=== PATIENT | male | born 1980 | race Caucasian/White ===

== ENCOUNTER 2016-08-29 09:52 | Emergency (ER) | payer BC ==
[2016-08-29 09:56] VITALS: BP 155/102; BMI 31.4
--- NOTE | 2016-08-29 10:50 | DR.GENAD ---
HPI - PCP Primary Care Physician: DR. SANTILLAN - HPI Comment HPI Comment: REDNESS AND CENTER PUSTULE MID RIGHT THIGH. IN THE FRONT AREA. SIZE GRAPE FRUIT. PATIENT BELIEVE IT TO BE INSECT BITE. FELT PAIN IN AREA TODAY. NO FEVER. NO DRAINAGE. - Complaint/Symptoms Chief Complaint Doctors Comments: RIGHT THIGH PAIN, INSECT BITE. Chief Complaint:: PATIENT STATED THAT SOMETHING BITE HIS RIGHT LEG AND IT IS SWOLLEN. PATIENT THINKS SOMETHING BITE HIS THIS MORNIG. HE FELT A PINCH THEN COULD HARDLY MOVE HIS LEG. UPPER RIGHT THIGH - Nurses notes reviewed Nurses Notes Review: Yes - Source History Provided: Patient - Mode of Arrival Mode of Arrival: Ambulatory - Timing Onset of Chief Complaint: 08/29/16 Came on: Suddenly - Duration Duration: Constant Duration: Days - Severity Severity: Moderate PMH - PMH Past Medical History: Yes Past Medical History: Dyslipidemia, Hypertension Past Surgical History: No - Family History History of Family Medical Conditions: Yes Family Medical History: Diabetes Mellitus, Cancer - Social History Does patient currently use any type of tobacco product: No Have you used tobacco products in the last 12 months: No Type of Tobacco Use: None Does any household member use tobacco: No Alcohol Use: None Do you use any recreational Drugs:: No Lives With: Family Lives Where: Home - infectious screening In the last 2 months have you had wt loss of >10#?: NO Have you had fever, night sweats or hemotysis?: No Have you traveled outside the country in the last 6 months?: No Isolation: Standard ROS - Review of Systems Constitutional: No Symptoms Reported Eyes: No Symptoms Reported ENTM: No Symptoms Reported Respiratoy: No Symptoms Reported Cardiovascular: No Symptoms Reported Gastrointestinal/Abdominal: No Symptoms Reported Genitourinary: No Symptoms Reported Neurological: No Symptoms Reported Musculoskeletal: Right, Other (THIGH.) Integumentary: Lesions (RIGHT MID THIGH, FRONT ASPECT. SIZE GRAPEFRUIT.), Itching Hematologic/Lymphatic: No Symptoms Reported Endocrine: No Symptoms Reported All Other Systems: Reviewed and Negative PE - Vital Signs Vitals: Temperature 97.4 F Pulse Rate 111 Respiratory Rate 20 Blood Pressure [Right Arm] 114/75 Blood Pressure [Left Arm] 139/93 Blood Pressure 155/102 O2 Sat by Pulse Oximetry 100 - General Limitations: No Limitations General Appearance: Alert - Head Head Exam: Normal Inspection - Eyes Eye exam: Normal Appearance - ENT ENT Exam: Normal External Ear Exam Mouth Exam: Normal Inspection Throat Exam: Normal Inspection - Neck Neck Exam: Trachea Midline - Chest Chest Inspection: Symmetric Chest Wall Rise - Respiratory Respiratory Exam: Bilateral Clear to Auscultation - Cardiovascular Cardiovascular Exam: Regular Rate, Normal Rhythm, Normal Heart Sounds - Abdominal Exam Abdominal Exam: Normal Inspection - Extremities Extremities Exam: Tenderness (RT THIGH) - Back Back Exam: Normal Inspection - Neurologic Neurological Exam: Alert - Psychiatric Psychiatric Exam: Normal Affect, Normal Mood - Skin Skin Exam: Erythema (REDNESS, TENDERNESS AND CENTER PUSTULE RT THIGH, FRONT.) MDM - Differential Diagnosis Differential Diagnosis: CELLULITIS, INSECT BITE Course - Education/Counseling Education/Counseling: Patient, Education Educated On: Diagnosis, Needs for Follow Up - Diagnosis Discharge Problem: Insect bite Qualifiers: Encounter type: initial encounter Qualified Code(s): W57.XXXA - Bitten or stung by nonvenomous insect and other nonvenomous arthropods, initial encounter Cellulitis Qualifiers: Site of cellulitis: extremity Site of cellulitis of extremity: lower extremity Laterality: right Qualified Code(s): L03.115 - Cellulitis of right lower limb - Discharge Plan Disposition: HOME, SELF-CARE Condition: Stable Prescriptions: Acetaminophen/Codeine Tab [TYLENOL w/CODEINE #3 (300 MG/30 MG) *] 1 tab PO Q4- 6H PRN #12 tab PRN Reason: Pain Hydroxyzine Pamoate [Vistaril] 25 - 50 mg PO TID PRN #15 cap PRN Reason: Sulfamethoxazole-Trimethoprim [BACTRIM DS TAB 800/160 MG *] 1 tab PO BID #20 tab - Follow ups/Referrals Follow ups/Referrals: ROSALINDA SANTILLAN [Primary Care Provider] - 3 days - Instructions Instructions: Cellulitis, Insect Bite, [id number] Additional Instructions: return to ed if worse
== END 2016-08-29 11:36 | disposition home or self-care (01) ==
LOC: ER 10:06
DX: L03.115 Cellulitis of right lower limb (principal); W57.XXXA Bitten or stung by nonvenomous insect and other nonvenomous arthropods, initial encounter
CPT/HCPCS: 99281; 99282

== ENCOUNTER 2016-12-10 19:32 | Emergency (ER) | payer BC ==
[2016-12-10 19:39] VITALS: BP 160/82; BMI 31.4
--- NOTE | 2016-12-10 20:35 | DR.GENAD ---
HPI - PCP Primary Care Physician: NFD - HPI Comment HPI Comment: PATIENT IS WORSE TONIGHT. COUGHING HURTING CHEST. COUGH IS PRODUCTIVE, YELLOW SPUTUM. POSITIVE DYSPHAGIA. - Complaint/Symptoms Chief Complaint Doctors Comments: SORE THROAT, FEVER, CHEST PAIN, SOB AND WHEEZING TIMES 2 DAYS. Chief Complaint:: PT C/O FEVER THROAT PAIN AND WHEEZING - Nurses notes reviewed Nurses Notes Review: Yes - Source History Provided: Patient - Mode of Arrival Mode of Arrival: Ambulatory - Timing Onset of Chief Complaint: 12/08/16 Came on: Suddenly - Duration Duration: Constant Duration: Days - Severity Severity: Moderate PMH - PMH Past Medical History: Yes Past Medical History: Dyslipidemia, Hypertension Past Surgical History: No - Family History History of Family Medical Conditions: Yes Family Medical History: Diabetes Mellitus, Cancer - Social History Do you use any recreational Drugs:: No Lives With: Family Lives Where: Home - infectious screening In the last 2 months have you had wt loss of >10#?: NO Have you had fever, night sweats or hemotysis?: No Have you traveled outside the country in the last 6 months?: No Isolation: Standard ROS - Review of Systems Constitutional: Fever, Weakness, Fatigue. negative: Chills, Diaphoresis Eyes: No Symptoms Reported. negative: Eye Pain, Discharge ENTM: Nose Discharge, Nose Congestion, Throat Pain. negative: Ear Pain Respiratoy: Productive Cough, Short of Breath. negative: Wheezing, Hemoptysis Cardiovascular: Chest Pain Gastrointestinal/Abdominal: No Symptoms Reported. negative: Diarrhea, Nausea, Vomiting Genitourinary: No Symptoms Reported. negative: Dysuria, Frequency, Hematuria Neurological: Headache, Weakness Musculoskeletal: Muscle Pain Integumentary: No Symptoms Reported Hematologic/Lymphatic: No Symptoms Reported Endocrine: No Symptoms Reported All Other Systems: Reviewed and Negative PE - Vital Signs Vitals: Temperature 98.6 F Pulse Rate 100 Respiratory Rate 18 Blood Pressure [Right Arm] 114/75 Blood Pressure [Left Arm] 139/93 Blood Pressure 160/82 O2 Sat by Pulse Oximetry 100 - General Limitations: No Limitations General Appearance: Alert - Head Head Exam: Normal Inspection - Eyes Eye exam: Normal Appearance - Neck Neck Exam: Normal Inspection - Chest Chest Inspection: Symmetric Chest Wall Rise - Respiratory Respiratory Exam: Normal Lung Sounds Bilat Respiratory Exam: Bilateral Clear to Auscultation - Cardiovascular Cardiovascular Exam: Regular Rate, Normal Rhythm, Normal Heart Sounds - Abdominal Exam Abdominal Exam: Normal Bowel Sounds, Soft. negative: Tenderness - Extremities Extremities Exam: Normal Inspection - Back Back Exam: Normal Inspection - Neurologic Neurological Exam: Alert, Oriented X3 - Psychiatric Psychiatric Exam: Normal Affect, Normal Mood - Skin Skin Exam: Normal Color [facility] - Differential Diagnosis Differential Diagnosis: STREP THROAT, BRONCHITIS, PNEUMONIA, DYSPHAGIA Course - Treatment Treatment: SEE ORDERS. - Education/Counseling Education/Counseling: Patient, Education Educated On: Treatment, Diagnosis, Needs for Follow Up ROR - Labs Reviewed Laboratory Results Reviewed?: Yes Laboratory: Streptococcus Screen Negative (NEGATIVE) 12/10/16 20:12 - XRAY XRAY Interpreted by: Radiologist XRAY Findings: REPORT DISCUSS WITH PATIENT. - Diagnosis Discharge Problem: Bronchitis, Sore throat - Discharge Plan Disposition: 01 HOME, SELF-CARE Condition: Stable Prescriptions: Acetaminophen with Codeine [Tylenol/Codeine #3 300-30 mg] 1 tab PO Q4-6H PRN # 15 tab PRN Reason: Pain Amoxicillin [Amoxil 875 mg] 875 mg PO Q12H #20 tab - Follow ups/Referrals Follow ups/Referrals: NFD,None [Primary Care Provider] - 3 days - Instructions Instructions: Sore Throat, [id number], Acute Bronchitis, [id number] Additional Instructions: RETURN TO ED IF WORSE,
[2016-12-10] MEDS ORDERED: ROCEPHIN VIAL 1 GM IM ONE (21:09)
[2016-12-10] MEDS ORDERED: TORADOL 60 MG VIAL IM ONE (21:09)
[2016-12-10] MEDS ORDERED: ROCEPHIN VIAL 1 GM ONE (21:40)
[2016-12-10] MEDS ORDERED: TORADOL 60 MG VIAL ONE (21:41)
--- NOTE | 2016-12-10 22:03 | RAD ---
Chest, one view Indication: Fever, wheeze subparagraph comparison: 05/28/2015 Findings: The heart size is normal. The lungs are clear without focal infiltrate or pleural effusion . The bony thorax is unremarkable. Impression: No acute cardiopulmonary disease. Reported By:
== END 2016-12-10 22:00 | disposition home or self-care (01) ==
LOC: ER 19:41
DX: J40 Bronchitis, not specified as acute or chronic (principal); J02.9 Acute pharyngitis, unspecified
CPT/HCPCS: 71010; 87070; 87880; 90472; 96372; 99283; J0696; J1885

== ENCOUNTER 2017-05-13 22:39 | Emergency (ER) | payer SELFPAY ==
[2017-05-13 22:43] VITALS: BMI 32.8
[2017-05-13] MEDS ORDERED: NITROSTAT SL PRN (22:58)
[2017-05-13] MEDS ORDERED: ASPIRIN 81 MG CHEWTAB PO ONE (22:58)
--- NOTE | 2017-05-13 22:59 | DR.GENAD ---
HPI - PCP Primary Care Physician: rosalinda santillan - HPI Comment HPI Comment: PAIN NON RADIATING ASSOCIATED WITH SOB AND WEAKNESS. NO FEVER. - Complaint/Symptoms Chief Complaint Doctors Comments: INTERMITTENT PRECORDIAL CHEST PRESSURE TIMES 10HRS. Chief Complaint:: pt stated he started having chest pain today about 10 hours pain comes and goes - Nurses notes reviewed Nurses Notes Review: Yes - Source History Provided: Patient - Mode of Arrival Mode of Arrival: Ambulatory - Timing Onset of Chief Complaint: 05/13/17 Came on: Suddenly - Duration Duration: Constant Duration: Hours - Severity Severity: Moderate PMH - PMH Past Medical History: Yes Past Medical History: Dyslipidemia, Hypertension Past Surgical History: No - Family History History of Family Medical Conditions: Yes Family Medical History: Diabetes Mellitus, Cancer - Social History Does patient currently use any type of tobacco product: No Have you used tobacco products in the last 12 months: No Type of Tobacco Use: None Does any household member use tobacco: No Alcohol Use: None Do you use any recreational Drugs:: No Lives With: Alone Lives Where: Home - infectious screening In the last 2 months have you had wt loss of >10#?: NO Have you had fever, night sweats or hemotysis?: No Have you traveled outside the country in the last 6 months?: No Isolation: Standard ROS - Review of Systems Constitutional: Weakness, Fatigue. negative: Chills, Fever Eyes: No Symptoms Reported. negative: Eye Pain, Discharge ENTM: No Symptoms Reported. negative: Ear Pain, Nose Discharge, Nose Congestion , Throat Pain Respiratoy: Short of Breath. negative: Productive Cough, Non-Productive Cough, Wheezing, Hemoptysis Cardiovascular: Chest Pain, Palpitations Gastrointestinal/Abdominal: No Symptoms Reported Genitourinary: No Symptoms Reported Neurological: Weakness. negative: Headache, Dizziness Musculoskeletal: No Symptoms Reported Integumentary: No Symptoms Reported Hematologic/Lymphatic: No Symptoms Reported Endocrine: No Symptoms Reported All Other Systems: Reviewed and Negative PE - Vital Signs Vitals: Temperature 98.7 F Pulse Rate [Left Brachial] 129 Pulse Rate 136 Respiratory Rate 16 Blood Pressure [Right Arm] 114/75 Blood Pressure [Left Arm] 134/70 Blood Pressure 174/108 O2 Sat by Pulse Oximetry 100 - General Limitations: No Limitations General Appearance: Alert - Head Head Exam: Normal Inspection - Eyes Eye exam: Normal Appearance - ENT ENT Exam: Normal External Ear Exam External Ear Exam: Normal External Inspection TM/Canal Exam: Bilateral Normal Nose Exam: Normal Nose Exam Mouth Exam: Normal Inspection Throat Exam: Normal Inspection - Neck Neck Exam: Trachea Midline - Chest Chest Inspection: Symmetric Chest Wall Rise - Respiratory Respiratory Exam: Normal Lung Sounds Bilat Respiratory Exam: Bilateral Rhonchi, Upper Rhonchi, Lower Rhonchi - Cardiovascular Cardiovascular Exam: Regular Rate, Normal Rhythm, Normal Heart Sounds - Abdominal Exam Abdominal Exam: Normal Bowel Sounds, Soft. negative: Tenderness - Extremities Extremities Exam: Normal Inspection - Back Back Exam: Normal Inspection - Neurologic Neurological Exam: Alert, Oriented X3 - Psychiatric Psychiatric Exam: Normal Affect, Normal Mood - Skin Skin Exam: Normal Color MDM - Differential Diagnosis Differential Diagnosis: CHEST PAIN, TACHYCARDIA Course - Treatment Treatment: SEE ORDERS. SIGN AMA. DO NOT WISH TO STAY IN PATIENT FOR CHEST PAIN. NTG RELIEF PAIN. STILL TACHYCARDIAC. - Consultation Consultation Comments: WILL ADMIT PT BUT PATIENT DO NOT WISH TO BE HOSPITALIZE. - Education/Counseling Education/Counseling: Patient, Education Educated On: Diagnosis, Needs for Follow Up ROR - Labs Reviewed Result Diagrams: 05/13/17 22:50 05/13/17 22:50 Laboratory: WBC 14.6 X10^3/uL (3.6-10.0) H 05/13/17 22:50 RBC 5.30 X10^6/uL (4.7-6.0) 05/13/17 22:50 Hgb 16.6 g/dL (13.5-18.0) 05/13/17 22:50 Hct 48.1 % (42.0-54.0) 05/13/17 22:50 MCV 90.9 fL (80.0-100.0) 05/13/17 22:50 MCH 31.4 pg (27.0-34.0) 05/13/17 22:50 MCHC 34.6 g/dL (33.0-35.0) 05/13/17 22:50 RDW 13.9 % (11.6-16.5) 05/13/17 22:50 Plt Count 315 X10^3/uL (150.0-450.0) 05/13/17 22:50 MPV 7.7 fL (7.4-11.0) 05/13/17 22:50 Neut % 72.0 % (42.0-75.0) 05/13/17 22:50 Lymph % 22.1 % (21.0-51.0) 05/13/17 22:50 [place] % 3.6 % (0.0-13.0) 05/13/17 22:50 Eos % 1.4 % (0.9-2.9) 05/13/17 22:50 Baso % 0.9 % (0.2-1.0) 05/13/17 22:50 Neut # 10.5 x10^3/uL (2.2-4.8) H 05/13/17 22:50 Lymph # 3.2 X10^3/uL (1.3-2.9) H 05/13/17 22:50 [place] # 0.5 x10^3/uL (0.3-0.8) 05/13/17 22:50 Eos # 0.2 x10^3/uL (0.0-0.2) 05/13/17 22:50 Baso # 0.1 X10^3/uL (0.0-0.1) 05/13/17 22:50 Absolute Nucleated RBC 0.1 /100WBC 05/13/17 22:50 D-Dimer < 100 ng/mL (0-400) 05/13/17 22:50 Sodium 137 mmol/L (136-145) 05/13/17 22:50 Corrected Sodium 139 mmol/L (136-145) 05/13/17 22:50 Potassium 3.9 mmol/L (3.5-5.1) 05/13/17 22:50 Chloride 105 mmol/L (98-107) 05/13/17 22:50 Carbon Dioxide 21.1 mmol/L (21-32) 05/13/17 22:50 BUN 17 mg/dL (7-18) 05/13/17 22:50 Creatinine 1.64 mg/dL (0.70-1.30) H 05/13/17 22:50 Est GFR (MDRD) Af Amer > 60 (>60) 05/13/17 22:50 Est GFR (MDRD) Non-Af 50 (>60) L 05/13/17 22:50 Glucose 170 mg/dL (65-99) H 05/13/17 22:50 Calcium 9.1 mg/dL (8.5-10.1) 05/13/17 22:50 Corrected Calcium TNP 05/13/17 22:50 Total Bilirubin 0.20 mg/dL (0.2-1.0) 05/13/17 22:50 AST 22 Units/L (15-37) 05/13/17 22:50 ALT 47 Units/L (12-78) 05/13/17 22:50 Alkaline Phosphatase 116 Units/L (46-116) 05/13/17 22:50 Creatine Kinase 125 Units/L (39-308) 05/13/17 22:50 CK-MB (CK-2) < 1.0 ng/mL (0-4.0) 05/13/17 22:50 CK/CKMB % Calc 0.8 % (<4) 05/13/17 22:50 Troponin I < 0.02 ng/mL (0-1.5) 05/13/17 22:50 B-Natriuretic Peptide 6.2 pg/mL (0-79) 05/13/17 22:50 Total Protein 7.6 g/dL (6.4-8.2) 05/13/17 22:50 Albumin 3.6 g/dL (3.4-5.0) 05/13/17 22:50 Globulin 4.0 g/dL (2.5-4.5) 05/13/17 22:50 Albumin/Globulin Ratio 0.9 Ratio (1.1-2.1) L 05/13/17 22:50 H. pylori IgG Antibody Negative (NEGATIVE) 05/13/17 22:50 - XRAY XRAY Interpreted by: Radiologist XRAY Findings: REPORT DISCUSS WITH PATIENT. - EKG Rhythm: ST (EKG NOTED) - Diagnosis Discharge Problem: Tachycardia Chest pain Qualifiers: Chest pain type: precordial pain Qualified Code(s): R07.2 - Precordial pain - Discharge Plan Disposition: 07 AGAINST MEDICAL ADVICE Condition: Stable - Follow ups/Referrals Follow ups/Referrals: ROSALINDA SANTILLAN [REFERRING] - 3 days - Instructions
[2017-05-13] MEDS ORDERED: ASPIRIN 81 MG CHEWTAB PO SCH (23:00)
[2017-05-13 23:12] LABS: BASOPHILS # (AUTO) 0.1 X10^3/uL (0.0-0.1); BASOPHILS % (AUTO) 0.9 % (0.2-1.0); EOSINOPHILS # (AUTO) 0.2 x10^3/uL (0.0-0.2); EOSINOPHILS % (AUTO) 1.4 % (0.9-2.9); HEMATOCRIT 48.1 % (42.0-54.0); HEMOGLOBIN 16.6 g/dL (13.5-18.0); LYMPHOCYTES # (AUTO) 3.2 X10^3/uL (1.3-2.9); LYMPHOCYTES % (AUTO) 22.1 % (21.0-51.0); MEAN CORPUSCULAR HEMOGLOBIN 31.4 pg (27.0-34.0); MEAN CORPUSCULAR HGB CONC 34.6 g/dL (33.0-35.0); MEAN CORPUSCULAR VOLUME 90.9 fL (80.0-100.0); MEAN PLATELET VOLUME 7.7 fL (7.4-11.0); MONOCYTES # (AUTO) 0.5 x10^3/uL (0.3-0.8); MONOCYTES % (AUTO) 3.6 % (0.0-13.0); NEUTROPHILS # (AUTO) 10.5 x10^3/uL (2.2-4.8); PLATELET COUNT 315 X10^3/uL (150.0-450.0); RED CELL DISTRIBUTION WIDTH 13.9 % (11.6-16.5); WHITE BLOOD COUNT 14.6 X10^3/uL (3.6-10.0)
[2017-05-13] MEDS ORDERED: ASPIRIN ONE (23:15)
[2017-05-13] MEDS ORDERED: NITROSTAT SL ONE (23:15)
[2017-05-13 23:26] LABS: BLOOD UREA NITROGEN 17 mg/dL (7-18); CALCIUM 9.1 mg/dL (8.5-10.1); CARBON DIOXIDE 21.1 mmol/L (21-32); CHLORIDE 105 mmol/L (98-107); CREATININE 1.64 mg/dL (0.70-1.30); TROPONIN I < 0.02 ng/mL (0-1.5); eGFR BLACK RACES > 60 (>60); eGFR NON BLACK RACES 50 (>60)
--- NOTE | 2017-05-13 23:27 | RAD ---
Indication: Pain Exam: Portable chest Comparison: 12/10/2016 Findings: The heart is normal. The pulmonary vessels are slightly ill-defined centrally. The lungs ar e hypoinflated. No consolidation or effusion is seen. The bones are intact. Impression: Mild central pulmonary congestion or pulmonary artery hypertension with no acute infiltra te or effusion. Reported By:
[2017-05-13 23:28] LABS: B-TYPE NATRIURETIC PEPTIDE 6.2 pg/mL (0-79)
[2017-05-13 23:31] LABS: ALANINE AMINOTRANSFERASE 47 Units/L (12-78); ALBUMIN 3.6 g/dL (3.4-5.0); ALKALINE PHOSPHATASE 116 Units/L (46-116); CKMB % 0.8 % (<4); CREATINE KINASE 125 Units/L (39-308); CREATINE KINASE MB < 1.0 ng/mL (0-4.0); TOTAL PROTEIN 7.6 g/dL (6.4-8.2)
[2017-05-13 23:36] VITALS: BP 134/70
[2017-05-13 23:50] LABS: COR NA(FOR HYPERGLY) 139 mmol/L (136-145); SODIUM 137 mmol/L (136-145)
[2017-05-13 23:52] LABS: ASPARTATE AMINO TRANSFERASE 22 Units/L (15-37)
[2017-05-14] MEDS ORDERED: LOPRESSOR TAB 25 MG PO SCH (09:00)
[2017-05-14] MEDS ORDERED: ASPIRIN PO SCH (09:00)
== END 2017-05-14 00:46 | disposition left against medical advice (07) ==
LOC: ER 22:39 → UNDOADMOB 05-14 00:32 → ICU 05-14 00:32 → ER 05-14 00:46
DX: R00.0 Tachycardia, unspecified (principal); R07.2 Precordial pain
CPT/HCPCS: 36415; 71045; 80053; 82550; 82553; 83880; 84484; 85025; 85378; 85610; 86677; 93005; 93010; 96365; 96367; 99283; A4216; A4222

== ENCOUNTER 2017-07-10 10:32 | Emergency (ER) | payer BC ==
[2017-07-10 10:54] VITALS: BMI 32.5
[2017-07-10 11:12] VITALS: BP 148/96
--- NOTE | 2017-07-10 11:19 | DR.ABDMALE ---
HPI - Time seen Time seen: 11:20 - PCP Primary Care Physician: ROSALINDA TORRES - Complaint Chief Complaint Doctors Comments: HISTORY BELOW. Chief Complaint:: PT C/O HAVING EPIGASTRIC PAIN THAT STARTED FOR A FEW MONTHS PT C/O PAIN GETTING WORSE ON SATURDAY PT WENT TO HIS MD ON 07/09/17 AND HE DID SOME LABS AND PT C/O INCREASED PAIN SO MD HIM TOLD HIM TO COME TO THE ER. Self Treatment fo Chief Complaint: PT C/O EATING MAKES HIS PAIN WORSE. - Reviewed Nurses Notes Review: Yes - Mode of arrival Mode of Arrival: Ambulatory - Timing Onset of Chief Complaint: 06/03/17 Came on: Suddenly - Duration Duration: Constant Duration: Weeks - Location Location: Epigastric - Quality Quality: Cramping - Context Onset: Suddenly - Modifying factors Worsening Factors: Food Improving Factors: Nothing - Associated signs and symptoms Associated Signs and Symptoms: Nausea PMH - PMH Past Medical History: No Past Medical History: Dyslipidemia, Hypertension Past Surgical History: No - Family History History of Family Medical Conditions: Yes Family Medical History: Diabetes Mellitus, Cancer - Social History Does patient currently use any type of tobacco product: No Have you used tobacco products in the last 12 months: No Type of Tobacco Use: None Does any household member use tobacco: No Alcohol Use: None Do you use any recreational Drugs:: No Lives With: Family Lives Where: Home - infectious screening In the last 2 months have you had wt loss of >10#?: NO Have you had fever, night sweats or hemotysis?: No Have you traveled outside the country in the last 6 months?: No Isolation: Standard ROS - Review of Systems Constitutional: No Symptoms Reported Eyes: No Symptoms Reported ENTM: No Symptoms Reported Respiratoy: No Symptoms Reported Cardiovascular: No Symptoms Reported Gastrointestinal/Abdominal: Abdominal Pain, Nausea Genitourinary: No Symptoms Reported Neurological: No Symptoms Reported Musculoskeletal: No Symptoms Reported Integumentary: No Symptoms Reported Hematologic/Lymphatic: No Symptoms Reported Endocrine: No Symptoms Reported All Other Systems: Reviewed and Negative PE - Vital Signs Vital Signs: Temp Pulse Resp BP BP BP Pulse Ox 07/10/17 11:11 148/96 07/10/17 10:48 97.2 F L 120 H 20 182/104 98 05/13/17 23:35 134/70 134/70 04/17/16 07:43 114/75 - General Limitations: No Limitations General Appearance: Alert - Head Head Exam: Normal Inspection - Eyes Eye exam: Normal Appearance - ENT ENT Exam: Normal External Ear Exam - Neck Neck Exam: Trachea Midline - Chest Chest Inspection: Symmetric Chest Wall Rise - Respiratory Respiratory Exam: Normal Lung Sounds Bilat Respiratory Exam: Bilateral Clear to Auscultation - Cardiovascular Cardiovascular Exam: Regular Rate, Normal Rhythm, Irregular Rhythm - Abdominal Exam Abdominal Exam: Normal Bowel Sounds, Soft, Tenderness Abdominal Tenderness: Diffuse, Moderate - Rectal Rectal Exam: Deferred - Back Back Exam: Normal Inspection - Extremeties Extremities Exam: Normal Inspection - Exam: Male: Deferred - Neurologic Neurological Exam: Alert, Oriented X3 - Psychiatric Psychiatric Exam: Normal Affect, Normal Mood - Skin Skin Exam: Normal Color MDM - Differential Diagnosis Differential Diagnosis: Bowel Obstruction, Cholcystitis, Cholelethiasis, Diverticular disease, Gastritus/PUD, Gastroenteritis, Pancreatitis, Urinary tract infection, Urolithiasis Course - Treatment Treatment: SEE ORDERS. - Education/Counseling Education/Counseling: Patient, Education Educated On: Treatment, Diagnosis, Needs for Follow Up ROR - Labs Reviewed Laboratory Results Reviewed?: Yes Result Diagrams: 07/10/17 11:51 07/10/17 11:51 Laboratory: WBC 10.8 X10^3/uL (3.6-10.0) H 07/10/17 11:51 RBC 5.66 X10^6/uL (4.7-6.0) 07/10/17 11:51 Hgb 17.9 g/dL (13.5-18.0) 07/10/17 11:51 Hct 50.6 % (42.0-54.0) 07/10/17 11:51 MCV 89.4 fL (80.0-100.0) 07/10/17 11:51 MCH 31.7 pg (27.0-34.0) 07/10/17 11:51 MCHC 35.4 g/dL (33.0-35.0) H 07/10/17 11:51 RDW 13.8 % (11.6-16.5) 07/10/17 11:51 Plt Count 371 X10^3/uL (150.0-450.0) 07/10/17 11:51 MPV 7.6 fL (7.4-11.0) 07/10/17 11:51 Neut % 56.6 % (42.0-75.0) 07/10/17 11:51 Lymph % 35.1 % (21.0-51.0) 07/10/17 11:51 [place] % 6.4 % (0.0-13.0) 07/10/17 11:51 Eos % 1.1 % (0.9-2.9) 07/10/17 11:51 Baso % 0.8 % (0.2-1.0) 07/10/17 11:51 Neut # 6.1 x10^3/uL (2.2-4.8) H 07/10/17 11:51 Lymph # 3.8 X10^3/uL (1.3-2.9) H 07/10/17 11:51 [place] # 0.7 x10^3/uL (0.3-0.8) 07/10/17 11:51 Eos # 0.1 x10^3/uL (0.0-0.2) 07/10/17 11:51 Baso # 0.1 X10^3/uL (0.0-0.1) 07/10/17 11:51 Absolute Nucleated RBC 0.1 /100WBC 07/10/17 11:51 Sodium 137 mmol/L (136-145) 07/10/17 11:51 Corrected Sodium TNP 07/10/17 11:51 Potassium 4.3 mmol/L (3.5-5.1) 07/10/17 11:51 Chloride 103 mmol/L (98-107) 07/10/17 11:51 Carbon Dioxide 22.1 mmol/L (21-32) 07/10/17 11:51 BUN 16 mg/dL (7-18) 07/10/17 11:51 Creatinine 1.24 mg/dL (0.70-1.30) 07/10/17 11:51 Est GFR (MDRD) Af Amer > 60 (>60) 07/10/17 11:51 Est GFR (MDRD) Non-Af > 60 (>60) 07/10/17 11:51 Glucose 91 mg/dL (65-99) 07/10/17 11:51 Calcium 9.5 mg/dL (8.5-10.1) 07/10/17 11:51 Corrected Calcium TNP 07/10/17 11:51 Total Bilirubin 0.40 mg/dL (0.2-1.0) 07/10/17 11:51 AST 26 Units/L (15-37) 07/10/17 11:51 ALT 45 Units/L (12-78) 07/10/17 11:51 Alkaline Phosphatase 118 Units/L (46-116) H 07/10/17 11:51 Total Protein 8.4 g/dL (6.4-8.2) H 07/10/17 11:51 Albumin 4.0 g/dL (3.4-5.0) 07/10/17 11:51 Globulin 4.4 g/dL (2.5-4.5) 07/10/17 11:51 Albumin/Globulin Ratio 0.9 Ratio (1.1-2.1) L 07/10/17 11:51 Amylase 49 Units/L (25-115) 07/10/17 11:51 Lipase 182 Units/L (73-393) 07/10/17 11:51 Specimen Type Clean catch urine 07/10/17 11:08 Urine Color Yellow (YELLOW) 07/10/17 11:08 Urine Appearance Hazy (CLEAR) 07/10/17 11:08 Urine pH 5.0 (5.0 - 8.0) 07/10/17 11:08 Ur Specific [place] 1.020 (1.000-1.030) 07/10/17 11:08 Urine Protein Negative (NEGATIVE) 07/10/17 11:08 Urine Glucose (UA) Negative (NEGATIVE) 07/10/17 11:08 Urine Ketones Negative (NEGATIVE) 07/10/17 11:08 Urine Occult Blood 1+ (NEGATIVE) 07/10/17 11:08 Urine Nitrite Negative (NEGATIVE) 07/10/17 11:08 Urine Bilirubin Negative (NEGATIVE) 07/10/17 11:08 Urine Urobilinogen Normal (NORMAL) 07/10/17 11:08 Ur Leukocyte Esterase Negative (NEGATIVE) 07/10/17 11:08 Urine RBC 0-2 /HPF (NONE SEEN) 07/10/17 11:08 Urine WBC 0-2 /HPF (NONE SEEN) 07/10/17 11:08 Ur Squamous Epith Cells Negative /HPF (NEGATIVE) 07/10/17 11:08 Urine Bacteria Negative /HPF (NEGATIVE) 07/10/17 11:08 Ur Culture Indicated? No/not indicated 07/10/17 11:08 H. pylori IgG Antibody Positive (NEGATIVE) A 07/10/17 11:51 - XRAY XRAY Findings: REPORT DISCUSS WITH PATIENT. - Diagnosis Discharge Problem: Abdominal pain, Helicobacter heilmannii gastritis - Discharge Plan Disposition: 01 HOME, SELF-CARE Condition: Stable Prescriptions: Lansoprazole/Amoxiciln/Clarith [PrevPac 14-day pack] 1 dose PO BID #1 pkg - Follow ups/Referrals Follow ups/Referrals: ROSALINDA SANTILLAN [Primary Care Provider] - 3 days - Instructions Instructions: Abdominal Pain, Adult, [id number], Helicobacter Pylori Antibodies Test Additional Instructions: RETURN TO ED IF WORSE.
[2017-07-10 11:29] LABS: BILIRUBIN,URINE NEGATIVE (NEGATIVE); BLOOD/HEMOGLOBIN,URINE 1+ (NEGATIVE); GLUCOSE, URINE NEGATIVE (NEGATIVE); KETONES,URINE NEGATIVE (NEGATIVE); LEUKOCYTE ESTERASE ,URINE NEGATIVE (NEGATIVE); NITRITES,URINE NEGATIVE (NEGATIVE); PROTEIN,URINE NEGATIVE (NEGATIVE); UROBILINOGEN,URINE NORMAL (NORMAL)
[2017-07-10 11:35] LABS: APPEARANCE,URINE HAZY (CLEAR); BACTERIA,URINE NEGATIVE /HPF (NEGATIVE); COLOR,URINE YELLOW (YELLOW); RBC,URINE 0-2 /HPF (NONE SEEN); SQUAMOUS EPITHELIAL CELL,UR NEGATIVE /HPF (NEGATIVE)
--- NOTE | 2017-07-10 12:02 | CT ---
CT ABDOMEN AND PELVIS WITHOUT CONTRAST CLINICAL HISTORY: 37-year-old male with diffuse abdominal pain with nausea, vomiting and diarrhea. COMPARISON: None. TECHNIQUE: Multiple contiguous computed tomographic axial images of the abdomen and pelvis were obtai maricruz without the use of oral or intravenous contrast. Images were reformatted in the coronal and sagit bianca planes. FINDINGS: The lung bases demonstrate no evidence of focal air-space opacification, pleural effusion, pneumothor ax, or suspicious pulmonary nodules. The imaged inferior mediastinum and heart are normal in appeara nce without evidence of pericardial effusion. The liver, gallbladder, pancreas, and spleen are within normal limits for noncontrast imaging. The adrenal glands and kidneys are normal bilaterally. There are no nephroureteral stones or perineph kavya fluid collections. There is no evidence of hydroureteronephrosis and the ureters run in an unobst ructed course to a well distended urinary bladder. The prostate, seminal vesicles, and external genitalia are within normal limits. The appendix is normal in appearance. The bowel is without obstruction or inflammation and there is no free fluid or free air within the peritoneal cavity. There are no pathologically enlarged lymph n odes in the abdomen or pelvis. The arteriovascular structures are within normal limits for a study without contrast. Soft tissues are normal. The osseous structures are intact without fracture or malalignment. IMPRESSION: No acute intra-abdominal or intrapelvic process. Reported By:
[2017-07-10 12:12] LABS: ALANINE AMINOTRANSFERASE 45 Units/L (12-78); ALKALINE PHOSPHATASE 118 Units/L (46-116); AMYLASE 49 Units/L (25-115); ASPARTATE AMINO TRANSFERASE 26 Units/L (15-37); BLOOD UREA NITROGEN 16 mg/dL (7-18); CALCIUM 9.5 mg/dL (8.5-10.1); CARBON DIOXIDE 22.1 mmol/L (21-32); CHLORIDE 103 mmol/L (98-107); CREATININE 1.24 mg/dL (0.70-1.30); LIPASE 182 Units/L (73-393); SODIUM 137 mmol/L (136-145); TOTAL PROTEIN 8.4 g/dL (6.4-8.2); eGFR BLACK RACES > 60 (>60); eGFR NON BLACK RACES > 60 (>60)
[2017-07-10 12:24] LABS: BASOPHILS # (AUTO) 0.1 X10^3/uL (0.0-0.1); BASOPHILS % (AUTO) 0.8 % (0.2-1.0); EOSINOPHILS # (AUTO) 0.1 x10^3/uL (0.0-0.2); EOSINOPHILS % (AUTO) 1.1 % (0.9-2.9); HEMATOCRIT 50.6 % (42.0-54.0); HEMOGLOBIN 17.9 g/dL (13.5-18.0); LYMPHOCYTES # (AUTO) 3.8 X10^3/uL (1.3-2.9); LYMPHOCYTES % (AUTO) 35.1 % (21.0-51.0); MEAN CORPUSCULAR HEMOGLOBIN 31.7 pg (27.0-34.0); MEAN CORPUSCULAR HGB CONC 35.4 g/dL (33.0-35.0); MEAN CORPUSCULAR VOLUME 89.4 fL (80.0-100.0); MEAN PLATELET VOLUME 7.6 fL (7.4-11.0); MONOCYTES # (AUTO) 0.7 x10^3/uL (0.3-0.8); MONOCYTES % (AUTO) 6.4 % (0.0-13.0); NEUTROPHILS # (AUTO) 6.1 x10^3/uL (2.2-4.8); NEUTROPHILS % (AUTO) 56.6 % (42.0-75.0); PLATELET COUNT 371 X10^3/uL (150.0-450.0); RED BLOOD COUNT 5.66 X10^6/uL (4.7-6.0); RED CELL DISTRIBUTION WIDTH 13.8 % (11.6-16.5); WHITE BLOOD COUNT 10.8 X10^3/uL (3.6-10.0)
== END 2017-07-10 13:05 | disposition home or self-care (01) ==
LOC: ER 10:57
DX: R10.84 Generalized abdominal pain (principal); B96.81 Helicobacter pylori [H. pylori] as the cause of diseases classified elsewhere
CPT/HCPCS: 36415; 74176; 80053; 81001; 82150; 83690; 85025; 86677; 99282; 99283